=== PATIENT | male | born 1965 | race Caucasian/White ===

== ENCOUNTER 2018-03-15 21:01 | Emergency (ER) | payer BC ==
[~2018-03-15] VITALS: Ht 177.8 cm; Wt 104.3 kg
[2018-03-15 21:21] VITALS: BP 146/80
--- NOTE | 2018-03-15 21:40 | PHYS DOC ---
Past Medical History Past Medical History: Asthma, High Cholesterol, Hypertension Past Surgical History: Appendectomy Alcohol Use: None Drug Use: None Adult General Chief Complaint Chief Complaint: HEARTBURN/GI DISTRESS HPI HPI Patient is a 52 year old male who presents to the ER with complaints of intermittent chest pain for the last 3 days. He describes the pain as a burning sensation in the middle of his chest. States that he took a 325 mg aspirin at 1800 this evening. He has tried taking antacids for relief of the pain that has helped some. He reports concern because his just had a heart attack 3 days ago. He denies any nausea, vomiting, diaphoresis, syncope, or shortness of breath. He states that nothing seems to make the pain worse. He reports a history of hypertension and high cholesterol. 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 Currently he rates his discomfort as a 5 out of 10 on the pain scale. Review of Systems Review of Systems Constitutional: Denies fever or chills [] Eyes: Denies change in visual acuity, redness, or eye pain [] HENT: Denies nasal congestion or sore throat [] Respiratory: Denies cough or shortness of breath [] Cardiovascular: see HPI GI: Denies abdominal pain, nausea, vomiting, or diarrhea [] : Denies dysuria or hematuria [] Musculoskeletal: Denies back pain or joint pain [] Integument: Denies rash or skin lesions [] Neurologic: Denies headache, focal weakness or sensory changes [] All other systems were reviewed and found to be within normal limits, except as documented in this note. Current Medications Current Medications Current Medications Medications (Trade) Dose Ordered Sig/[facility] Start Time Stop Time Status Last Admin Dose Admin Multi-Ingredient Mouthwash/Gargle (Gi Cocktail) 20 ml 1X ONCE 03/15/18 22:00 03/15/18 22:01 DC 03/15/18 22:09 20 ML Allergies Allergies Allergies Coded Allergies Type Severity Reaction Last Updated Verified No Known Drug Allergies 03/15/18 No Physical Exam Physical Exam Constitutional: Well developed, well nourished, no acute distress, non-toxic appearance. [] HENT: Normocephalic, atraumatic, bilateral external ears normal, oropharynx moist, no oral exudates, nose normal. [] Eyes: PERRLA, conjunctiva normal, no discharge. [] Neck: Normal range of motion, no tenderness, supple, no stridor. [] Cardiovascular: Heart rate regular rhythm, no murmur [] Lungs & Thorax: Bilateral breath sounds clear to auscultation [] Abdomen: Bowel sounds normal, soft, no tenderness, no masses, no pulsatile masses. [] Skin: Warm, dry, no erythema, no rash. [] Extremities: No tenderness, no cyanosis, no clubbing, ROM intact, no edema. [] Neurologic: Alert and oriented X 3, normal motor function, normal sensory function, no focal deficits noted. [] Psychologic: Affect normal, judgement normal, mood normal. [] Current Patient Data Vital Signs Vital Signs Date Time Temp Pulse Resp B/P (MAP) Pulse Ox O2 Delivery O2 Flow Rate FiO2 03/15/18 21:21 97.9 87 18 146/80 (102) 96 Room Air 97.9 Lab Values Laboratory Tests Test 03/15/18 21:30 White Blood Count 9.2 x10^3/uL (4.0-11.0) Red Blood Count 4.48 x10^6/uL (4.30-5.70) Hemoglobin 13.9 g/dL (13.0-17.5) Hematocrit 39.0 % (39.0-53.0) Mean Corpuscular Volume 87 fL (79-100) Mean Corpuscular Hemoglobin 31 pg (25-35) Mean Corpuscular Hemoglobin Concent 36 g/dL (31-37) Red Cell Distribution Width 13.0 % (11.5-14.5) Platelet Count 297 x10^3/uL (140-400) Neutrophils (%) (Auto) 65 % (31-73) Lymphocytes (%) (Auto) 26 % (24-48) Monocytes (%) (Auto) 8 % (0-9) Eosinophils (%) (Auto) 1 % (0-3) Basophils (%) (Auto) 1 % (0-3) Neutrophils # (Auto) 6.0 x10^3uL (1.8-7.7) Lymphocytes # (Auto) 2.4 x10^3/uL (1.0-4.8) Monocytes # (Auto) 0.7 x10^3/uL (0.0-1.1) Eosinophils # (Auto) 0.1 x10^3/uL (0.0-0.7) Basophils # (Auto) 0.1 x10^3/uL (0.0-0.2) Prothrombin Time 12.9 SEC (11.7-14.0) Prothrombin Time INR 1.0 (0.8-1.1) Sodium Level 137 mmol/L (136-145) Potassium Level 3.8 mmol/L (3.5-5.1) Chloride Level 98 mmol/L (98-107) Carbon Dioxide Level 29 mmol/L (21-32) Anion Gap 10 (6-14) Blood Urea Nitrogen 22 mg/dL (8-26) Creatinine 0.9 mg/dL (0.7-1.3) Estimated GFR (Cockcroft-Gault) 89.0 BUN/Creatinine Ratio 24 (6-20) H Glucose Level 157 mg/dL (70-99) H Calcium Level 9.9 mg/dL (8.5-10.1) Total Bilirubin 0.6 mg/dL (0.2-1.0) Aspartate Amino Transferase (AST) 32 U/L (15-37) Alanine Aminotransferase (ALT) 62 U/L (16-63) Alkaline Phosphatase 77 U/L (46-116) Troponin I Quantitative < 0.017 ng/mL (0.000-0.055) AQ-Uqh-W-Type Natriuretic Peptide 18 pg/mL (0-124) Total Protein 8.1 g/dL (6.4-8.2) Albumin 4.1 g/dL (3.4-5.0) Albumin/Globulin Ratio 1.0 (1.0-1.7) Lipase 162 U/L (73-393) Laboratory Tests 03/15/18 21:30 Laboratory Tests 03/15/18 21:30 EKG EKG NSR no STEMI read by Dr. Ramirez [] Radiology/Procedures Radiology/Procedures CXR negative for any acute findings read by Dr. Van[] Course & Med Decision Making Course & Med Decision Making Pertinent Labs and Imaging studies reviewed. (See chart for details) Dx: GERD DDx: ACS, AL, pneumonia, costochondritis, Labs unremarkable, CXR normal. EKG NSR. Pt took 325 mg of [employer]. A GI cocktail was given in the ER, pt reported no pain after GI cocktail. RX for famotidine 20 mg PO BID written. Pt advised to avoid fatty, carbonated, and spicy foods. Follow up with PCP in 1-2 days, return to ER if symptoms worsen. Patient verbalized an understanding of home care, medications, follow-up, and return to ED instructions and was in agreement with the plan of care. Dragon Disclaimer Dragon Disclaimer This electronic medical record was generated, in whole or in part, using a voice recognition dictation system. Departure Departure Impression: Primary Impression: Heartburn Additional Impression: Chest pain due to GERD Disposition: HOME, SELF-CARE Condition: STABLE Patient Instructions: Diet for Gastroesophageal Reflux Disease, Adult, Easy-to- Read, Heartburn, [id number] Additional Instructions: Fill prescription and use it as directed. Avoid fatty, carbonated, and spicy foods. Follow up with PCP in 1-2 days, return to ER if symptoms worsen. Scripts Famotidine (FAMOTIDINE) 20 Mg Tablet 20 MG PO BID for 14 Days, #28 TAB 0 Refills Prov: JULIAN HERNANDEZ APRN 03/15/18 Problem Qualifiers JULIAN HERNANDEZ APRN Mar 15, 2018 21:40
[2018-03-15 21:50] LABS: BASO # 0.1 x10^3/uL (0.0-0.2); BASO % 1 % (0-3); EOS # 0.1 x10^3/uL (0.0-0.7); EOS % 1 % (0-3); HEMOGLOBIN 13.9 g/dL (13.0-17.5); LYMPH # 2.4 x10^3/uL (1.0-4.8); LYMPH % 26 % (24-48); MEAN CORPUSCULAR HEMOGLOBIN 31 pg (25-35); MEAN CORPUSCULAR HGB CONC 36 g/dL (31-37); MEAN CORPUSCULAR VOLUME 87 fL (79-100); MONO # 0.7 x10^3/uL (0.0-1.1); MONO % 8 % (0-9); NEUT % 65 % (31-73); PLATELET COUNT 297 x10^3/uL (140-400); RED BLOOD COUNT 4.48 x10^6/uL (4.30-5.70); WHITE BLOOD COUNT 9.2 x10^3/uL (4.0-11.0)
[2018-03-15 21:53] LABS: CALCIUM 9.9 mg/dL (8.5-10.1); CREATININE 0.9 mg/dL (0.7-1.3); POTASSIUM 3.8 mmol/L (3.5-5.1); PROTHROMBIN TIME PATIENT 12.9 SEC (11.7-14.0)
[2018-03-15 21:58] LABS: ALBUMIN 4.1 g/dL (3.4-5.0); TOTAL BILIRUBIN 0.6 mg/dL (0.2-1.0); TOTAL PROTEIN 8.1 g/dL (6.4-8.2)
[2018-03-15] MEDS: LIDO:MAALOX 1:1 20 ML SINGLE DOSE. SWSW ONE (22:09)
[2018-03-15] MEDS ORDERED: FAMO20TA5 PO (22:33)
--- NOTE | 2018-03-16 02:18 | EKG ---
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
--- NOTE | 2018-03-16 07:53 | RAD ---
Chest, 2 views, 03/15/2018: HISTORY: Chest pain The heart size and pulmonary vascularity are normal. No pulmonary infiltrate is seen. There is no evidence of pleural fluid. Mild spurring is present in the spine. IMPRESSION: No acute cardiopulmonary abnormality is detected. Electronically signed by: Steven English MD (03/16/2018 7:50 AM) [facility]
--- NOTE | 2018-03-16 13:08 | EKG ---
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
== END 2018-03-15 22:56 | disposition home or self-care (01) ==
LOC: ER 21:01
DX: R07.89 Other chest pain (principal); R12 Heartburn; K21.9 Gastro-esophageal reflux disease without esophagitis; R60.0 Localized edema; I10 Essential (primary) hypertension; E78.00 Pure hypercholesterolemia, unspecified; J45.909 Unspecified asthma, uncomplicated; Z90.89 Acquired absence of other organs
CPT/HCPCS: 36415; 71046; 80053; 83690; 83880; 84484; 85025; 85610; 93005; 99285-25

== ENCOUNTER 2018-03-17 22:31 | Emergency (ER) | payer BC ==
[~2018-03-17] VITALS: Ht 177.8 cm; Wt 100.7 kg
[~2018-03-17 22:31] MED LIST: FAMO20TA5 PO
[2018-03-17] MEDS ORDERED: ASPIRIN CHEWABLE 81 MG TABLET. PO ONE (23:00)
[2018-03-17] MEDS ORDERED: MORPHINE SULFATE 4 MG/ML VIAL. IV ONE (23:00)
[2018-03-17 23:07] LABS: PROTHROMBIN TIME PATIENT 12.8 SEC (11.7-14.0)
[2018-03-17 23:37] LABS: BASO # 0.1 x10^3/uL (0.0-0.2); BASO % 1 % (0-3); EOS # 0.1 x10^3/uL (0.0-0.7); EOS % 1 % (0-3); HEMATOCRIT 39.3 % (39.0-53.0); HEMOGLOBIN 14.1 g/dL (13.0-17.5); LYMPH # 2.4 x10^3/uL (1.0-4.8); LYMPH % 23 % (24-48); MEAN CORPUSCULAR HEMOGLOBIN 31 pg (25-35); MEAN CORPUSCULAR HGB CONC 36 g/dL (31-37); MEAN CORPUSCULAR VOLUME 87 fL (79-100); MONO # 0.7 x10^3/uL (0.0-1.1); MONO % 7 % (0-9); NEUT # 6.9 x10^3uL (1.8-7.7); NEUT % 68 % (31-73); PLATELET COUNT 272 x10^3/uL (140-400); RED BLOOD COUNT 4.55 x10^6/uL (4.30-5.70); RED CELL DISTRIBUTION WIDTH 13.4 % (11.5-14.5); WHITE BLOOD COUNT 10.1 x10^3/uL (4.0-11.0)
[2018-03-17 23:41] LABS: CALCIUM 10.2 mg/dL (8.5-10.1); CREATININE 0.9 mg/dL (0.7-1.3); POTASSIUM 3.8 mmol/L (3.5-5.1)
--- NOTE | 2018-03-18 00:03 | RAD ---
PROCEDURE: PORTABLE CHEST 1V CLINICAL INDICATION: Chest pain today COMPARISON: 03/15/2018 FINDINGS: No pneumothorax identified. Cardiac and mediastinal contours unremarkable. No pulmonary consolidation or acute airspace disease. No acute osseous abnormalities identified. IMPRESSION: No pulmonary consolidation or acute airspace disease. Electronically signed by: Tony Lyman DO (03/18/2018 12:00 AM) [facility]
[2018-03-18 01:45] VITALS: BP 143/85
--- NOTE | 2018-03-18 02:02 | PHYS DOC ---
Past Medical History Past Medical History: Asthma, Diabetes-Type II, High Cholesterol, Hypertension Past Surgical History: Appendectomy Alcohol Use: None Drug Use: None Adult General Chief Complaint Chief Complaint: CHEST PAIN HPI HPI Patient is a 52 year old male who presents with chest pain. Patient began having sternal chest pain described to be heaviness about 30 minutes prior to presentation. Pain is nonradiating. He did not feel short of breath. He was at rest and had been eating food when the pain started. He denies prior known history of coronary artery disease but does have a history of reflux. No recent fever, chills, cough. No palpitations or lightheadedness. The patient is anxious. Of note, the patient's had a large myocardial infarction one week earlier and required intubation. She had 20 minutes of CPR. She remains in the intensive care unit and has not had evidence of brain activity. This is causing the patient obviously great distress. Review of Systems Review of Systems Constitutional: Denies fever or chills Eyes: Denies change in visual acuity HENT: Denies nasal congestion or sore throat Respiratory: Denies cough or shortness of breath Cardiovascular: No additional information not addressed in HPI GI: Denies abdominal pain, nausea Musculoskeletal: Denies back pain Neurologic: Denies headache, focal weakness Endocrine: Denies polyuria or polydipsia All other systems were reviewed and found to be within normal limits, except as documented in this note. Current Medications Current Medications Current Medications Medications (Trade) Dose Ordered Sig/[facility] Start Time Stop Time Status Last Admin Dose Admin Aspirin (Children'S Aspirin) 81 mg 1X ONCE 03/17/18 23:00 03/17/18 23:02 DC 03/17/18 23:15 81 MG Morphine Sulfate (Morphine Sulfate) 4 mg 1X ONCE 03/17/18 23:00 03/17/18 23:02 DC 03/17/18 23:16 4 MG Allergies Allergies Allergies Coded Allergies Type Severity Reaction Last Updated Verified No Known Drug Allergies 03/15/18 No Physical Exam Physical Exam Constitutional: Well developed, well nourished, no acute distress, non-toxic appearance HENT: Normocephalic, atraumatic, bilateral external ears normal, oropharynx moist Eyes: PERRLA, EOMI, conjunctiva normal, no discharge Neck: Normal range of motion, no tenderness, supple, no stridor Cardiovascular:Heart rate regular rhythm, no murmur Lungs & Thorax: Bilateral breath sounds clear to auscultation Skin: Warm, dry, no erythema, no rash Back: No tenderness Extremities: No tenderness Neurologic: Alert and oriented X 3 Psychologic: Affect normal Current Patient Data Vital Signs Vital Signs Date Time Temp Pulse Resp B/P (MAP) Pulse Ox O2 Delivery O2 Flow Rate FiO2 03/18/18 00:16 76 16 133/80 (97) 95 Room Air 03/17/18 22:33 97.7 97.7 Lab Values Laboratory Tests Test 03/17/18 22:45 03/17/18 23:14 03/18/18 01:30 White Blood Count 10.1 x10^3/uL (4.0-11.0) Red Blood Count 4.55 x10^6/uL (4.30-5.70) Hemoglobin 14.1 g/dL (13.0-17.5) Hematocrit 39.3 % (39.0-53.0) Mean Corpuscular Volume 87 fL (79-100) Mean Corpuscular Hemoglobin 31 pg (25-35) Mean Corpuscular Hemoglobin Concent 36 g/dL (31-37) Red Cell Distribution Width 13.4 % (11.5-14.5) Platelet Count 272 x10^3/uL (140-400) Neutrophils (%) (Auto) 68 % (31-73) Lymphocytes (%) (Auto) 23 % (24-48) L Monocytes (%) (Auto) 7 % (0-9) Eosinophils (%) (Auto) 1 % (0-3) Basophils (%) (Auto) 1 % (0-3) Neutrophils # (Auto) 6.9 x10^3uL (1.8-7.7) Lymphocytes # (Auto) 2.4 x10^3/uL (1.0-4.8) Monocytes # (Auto) 0.7 x10^3/uL (0.0-1.1) Eosinophils # (Auto) 0.1 x10^3/uL (0.0-0.7) Basophils # (Auto) 0.1 x10^3/uL (0.0-0.2) Prothrombin Time 12.8 SEC (11.7-14.0) Prothrombin Time INR 1.0 (0.8-1.1) PTT 30 SEC (24-38) Sodium Level 134 mmol/L (136-145) L Potassium Level 3.8 mmol/L (3.5-5.1) Chloride Level 96 mmol/L (98-107) L Carbon Dioxide Level 28 mmol/L (21-32) Anion Gap 10 (6-14) Blood Urea Nitrogen 26 mg/dL (8-26) Creatinine 0.9 mg/dL (0.7-1.3) Estimated GFR (Cockcroft-Gault) 89.0 Glucose Level 133 mg/dL (70-99) H Calcium Level 10.2 mg/dL (8.5-10.1) H Troponin I Quantitative < 0.017 ng/mL (0.000-0.055) TN-Waz-Q-Type Natriuretic Peptide 23 pg/mL (0-124) POC Troponin I 0.01 ng/ml (<0.08) Laboratory Tests 03/17/18 22:45 Laboratory Tests 03/17/18 23:14 EKG EKG No STEMI Radiology/Procedures Radiology/Procedures CXR: No acute findings Course & Med Decision Making Course & Med Decision Making Pertinent Labs and Imaging studies reviewed. (See chart for details) Patient was evaluated in the emergency department for chest pain. His initial troponin and EKG were negative. I discussed the possibility of admission to rule out myocardial infarction with this patient but he was unwilling to be admitted. His is currently an inpatient in the ICU at this hospital. Ultimately, the patient was held in the ER for 3 hours. A 3 hour troponin and EKG were completed. The troponin was not elevated. The patient had no acute EKG changes. He was discharged to home. He was advised to come back to the emergency room immediately if he experiences any ongoing or worsening symptoms. He was given a dose of pain medication in the emergency department which did completely relieve his symptoms. Dragon Disclaimer Dragon Disclaimer This electronic medical record was generated, in whole or in part, using a voice recognition dictation system. Departure Departure Impression: Primary Impression: Other chest pain Disposition: 01 HOME, SELF-CARE Condition: GOOD Patient Instructions: Chest Pain (Nonspecific), [id number] SEAN MEI DO Mar 18, 2018 02:02
--- NOTE | 2018-03-18 06:16 | EKG ---
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
== END 2018-03-18 01:49 | disposition home or self-care (01) ==
LOC: ER 22:31
DX: R07.89 Other chest pain (principal); J45.909 Unspecified asthma, uncomplicated; E11.9 Type 2 diabetes mellitus without complications; E78.00 Pure hypercholesterolemia, unspecified; I10 Essential (primary) hypertension; Z90.89 Acquired absence of other organs
CPT/HCPCS: 36415; 71045; 80048; 83880; 84484; 85025; 85610; 85730; 93005; 96374; 99285; J2270